=== PATIENT | female | born 1995 | race Two or more races ===

== ENCOUNTER 2017-06-03 12:43 | Emergency (ER) | payer SELFPAY ==
[2017-06-03 12:56] VITALS: BP 120/81; PULSE 104; RESP 16; TEMP 98.8; O2SAT 96
[2017-06-03] MEDS ORDERED: IBUPROFEN 600 MG TAB PO ONE (13:17)
[2017-06-03] MEDS ORDERED: TDAP ADULT 0.5 ML INJ (BOOSTRIX) IM ONE (13:17)
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
== END 2017-06-03 14:32 | disposition home or self-care (01) ==
PROC: 0HQ1XZZ Repair Face Skin, External Approach (ICD-10-PCS; principal; 2017-06-03)
DX: S01.81XA Laceration without foreign body of other part of head, initial encounter (principal); S60.511A Abrasion of right hand, initial encounter; S60.512A Abrasion of left hand, initial encounter; S61.401A Unspecified open wound of right hand, initial encounter; F17.200 Nicotine dependence, unspecified, uncomplicated; Z23 Encounter for immunization; V18.0XXA Pedal cycle driver injured in noncollision transport accident in nontraffic accident, initial encounter; Y99.8 Other external cause status; Y93.55 Activity, bike riding